=== PATIENT | female | born 1945 | race Caucasian/White ===

== ENCOUNTER 2017-03-31 22:30 | Emergency (ER) | payer MEDICARE ==
[~2017-03-31] VITALS: Ht 154.9 cm; Wt 64.1 kg
[~2017-03-31 22:30] MED LIST: CHOL1CAP6 PO; FISH100020 PO; TAB-TAB PO
[2017-03-31 22:32] VITALS: BP 155/76; PULSE 78; RESP 16; TEMP 98.2; O2SAT 94
--- NOTE | 2017-03-31 22:59 | PD ---
HPI Chief Complaint: Pain: Acute or Chronic Time Seen by Provider: 22:59 Travel History International Travel<30 days: No Contact w/Intl Traveler<30days: No Traveled to known affect area: No History of Present Illness HPI 71-year-old female came to the emergency room with history of right hip pain radiating down the back of her leg up to the mid calf. Patient says this pain started yesterday and is progressively worsening. It gets worse when she is moving or standing up or walking. Patient appeared to be in distress and laying on her left side. She's never had this kind of pain before. No history of trauma or lifting heavy weights. Patient does not have any lower back problems that she knows of. Vital signs were otherwise stable. [facility]LY [facility] Past Medical History Narrative Medical List of her past medical, surgical, social and family history is reviewed from the nursing note. Asthma: No Blood Disorders: No Anxiety: No Depression: No Heart Rhythm Problems: No Cancer: Yes (COLON, BERTIN. BREASTS WITH +MARKERS) Cardiovascular Problems: No High Cholesterol: No Chemotherapy: No Chest Pain: No Congestive Heart Failure: No COPD: No Diabetes: No Endocrine: No Gastrointestinal Disorders: Yes (S/P COLON CANCER) Genitourinary: No Hepatitis: No Hiatal Hernia: No Immune Disorder: No Medical other: Yes (ANEMIA) Musculoskeletal: Yes (ARTHRITIS) Neurologic: Yes (NEUROPATHY FEET/ FINGERTIPS) Psychiatric: No Reproductive: No Respiratory: No Radiation Therapy: No Sleep Apnea: No Thyroid Disease: No Tetanus Vaccination: > 5 Years Influenza Vaccination: No PNEUMOCCOCAL Vaccine (Year): 2 ?: Not Menopausal: Yes Past Surgical History Abdominal Surgery: Yes (COLON RESECTION/ PANCREATIC REPAIR) AICD: No Body Medical Devices: BREASTS, CHEMOPORT Cardiac Surgery: No Section: Yes (X 3) Ear Surgery: No Endocrine Surgery: No Eye Surgery: No Genitourinary Surgery: Yes Gynecologic Surgery: Yes (3 C SECTIONS/ RIGHT OOPHORECTOMY) Hysterectomy: Yes Joint Replacement: No Oral Surgery: No Pacemaker: No Thoracic Surgery: No Other Surgery: Yes (breast implants) Social History Alcohol Use: Yes Tobacco Use: No Substance Use: No Allergies-Medications (Allergen,Severity, Reaction): Coded Allergies: Influenza Virus Vaccines (Unverified Allergy, Severe, NAUSEA, 04/02/17) acetaminophen (Unverified Allergy, Severe, NAUSEA, 2/13/18) propoxyphene (Unverified Allergy, Severe, NAUSEA, 04/02/17) Comments List of allergies reviewed from the nursing note. Reported Meds & Prescriptions Reported Meds & Active Scripts Active Percocet (Oxycodone-Acetaminophen) 5-325 mg Tab 1 Tab PO Q4H PRN Prednisone 20 Mg Tab 60 Mg PO DAILY 5 Days Flexeril (Cyclobenzaprine HCl) 5 Mg Tab 5 Mg PO TID Narrative Medication List of her home medications reviewed from the nursing note. Review of Systems Except as stated in HPI: all other systems reviewed are Neg Musculoskeletal: Positive: Pain Physical Exam Narrative GENERAL: Awake, alert, moderate distress SKIN: Focused skin assessment warm/dry. HEAD: Atraumatic. Normocephalic. EYES: Pupils equal and round. No scleral icterus. No injection or drainage. ENT: No nasal bleeding or discharge. Mucous membranes pink and moist. NECK: Trachea midline. No JVD. CARDIOVASCULAR: Regular rate and rhythm. No murmur appreciated. RESPIRATORY: No accessory muscle use. Clear to auscultation. Breath sounds equal bilaterally. GASTROINTESTINAL: Abdomen soft, non-tender, nondistended. Hepatic and splenic margins not palpable. MUSCULOSKELETAL: No obvious deformities. No clubbing. No cyanosis. No edema. Negative SLR NEUROLOGICAL: Awake and alert. No obvious cranial nerve deficits. Motor grossly within normal limits. Normal speech. PSYCHIATRIC: Appropriate mood and affect; insight and judgment normal. Data Data Last Documented VS Vital Signs Date Time Temp Pulse Resp B/P (MAP) Pulse Ox O2 Delivery O2 Flow Rate FiO2 04/01/17 01:24 03/31/17 22:32 98.2 78 16 94 Room Air Orders Orders Ketorolac Inj (Toradol Inj) (03/31/17 23:15) Orphenadrine Inj (Norflex Inj) (03/31/17 23:15) Ct Lumb Spine W/O Contrast (03/31/17 ) Morphine Inj (Morphine Inj) (03/31/17 23:15) Ed Discharge Order (04/01/17 01:15) MDM Medical Decision Making Medical Screen Exam Complete: Yes Emergency Medical Condition: Yes Medical Record Reviewed: Yes Differential Diagnosis Sciatica, lumbar radiculopathy, Narrative Course Motor [address] scan of the lumbar spine showed some DJD but otherwise negative. Patient was given IM pain medications and muscle relaxants. Upon reassessment patient seems to be up and taking a few steps at this point. I'm comfortable discharging her home. Diagnosis Primary Impression: Lumbar radiculopathy, acute Referrals: Primary Care Physician Additional Instructions: Please return to the ER if condition worsens or any other new concerns. Otherwise follow-up with your primary care next couple days. Take the medications as per the prescription direction. One of the medication will make you groggy. He should not be driving while you are on the medication. If your symptoms do not improve significantly your primary care should order an MRI off your lower back as an outpatient. Med/Other Pt SpecificInfo: Prescription(s) given Scripts Cyclobenzaprine (Flexeril) 5 Mg Tab 5 MG PO TID for Muscle Spasm, #15 TAB 0 Refills Prov: Drake Ambrosio MD 04/01/17 Disposition: 01 DISCHARGE HOME Condition: Stable Drake Ambrosio MD Mar 31, 2017 22:59
[2017-03-31] MEDS ORDERED: KETOROLAC TROMETHAMINE 60 MG/2 ML (IM) VIAL IM ONE (23:15)
[2017-03-31] MEDS ORDERED: MORPHINE SULFATE 8 MG/ML INJ IM ONE (23:15)
[2017-03-31] MEDS ORDERED: ORPHENADRINE INJ 60 MG/2 ML AMP IM ONE (23:15)
--- NOTE | 2017-03-31 23:59 | RADRPT ---
EXAM DATE/TIME: 03/31/2017 23:40 [facility] COMPARISON: No previous studies available for comparison. INDICATIONS : Trauma; back pain. RADIATION DOSE: 20.91 CTDIvol (mGy) MEDICAL HISTORY : Carcinoma, breast. Carcinoma, colon. SURGICAL HISTORY : Colon resection. Mastectomy, bilateral. section.breast reconstruction, right oopherectomy ENCOUNTER: Initial ACUITY: 1 day PAIN SCALE: 6/10 LOCATION: lower back TECHNIQUE: Volumetric scanning of the lumbar spine was performed. Multiplanar reconstructions in the sagittal, coronal and oblique axial planes were performed. Using automated exposure control and adjustment of the mA and/or kV according to patient size, radiation dose was kept as low as reasonably achievable t o obtain optimal diagnostic quality images. DICOM format image data is available electronically for review and comparison. FINDINGS: Mild disc space narrowing at L3-4 with slight retrolisthesis of L3 on L4. Multilevel osteophyte forma tion greatest at L3 and L4. There are no compression deformities. Bone density is normal. Multilevel facet hypertrophic changes are identified. There is no canal stenosis. Minimal diffuse disc bulge at L3-4 and L4-5. At L5-S1, a focal right central disc protrusion is noted with superior migration. Ther e is mild mass effect on the right L5 nerve roots. On axial image 67 of series 4 the protrusion measu res 9.8 mm in transverse dimension by 7 mm in AP dimension. CONCLUSION: Degenerative changes are noted without evidence for acute fracture. Alan Garcia MD on March 31, 2017 at 23:56 Board Certified Radiologist. This report was verified electronically.
[2017-04-01] MEDS ORDERED: CYCL5TAB PO (01:17)
[2017-04-01] MEDS ORDERED: IBUP1TAB5 PO (01:17)
[2017-04-02] MEDS ORDERED: PRED20 PO (13:58)
[2017-04-02] MEDS ORDERED: PERC5TAB12 PO (13:58)
== END 2017-04-01 01:56 | disposition home or self-care (01) ==
LOC: NEPC 22:30
DX: M54.16 Radiculopathy, lumbar region (principal); D64.9 Anemia, unspecified; M19.90 Unspecified osteoarthritis, unspecified site; G62.9 Polyneuropathy, unspecified; Z88.6 Allergy status to analgesic agent; Z88.8 Allergy status to other drugs, medicaments and biological substances
CPT/HCPCS: 72131; 96372; 99283; J1885; J2270; J2360

== ENCOUNTER 2017-04-02 10:26 | Emergency (ER) | payer MEDICARE ==
[~2017-04-02] VITALS: Ht 154.9 cm; Wt 63.5 kg
[2017-04-02 10:26] VITALS: BP 164/67; PULSE 66; RESP 18; TEMP 98.1; O2SAT 97
[~2017-04-02 10:26] MED LIST changes: +CYCL5TAB PO; +IBUP1TAB5 PO
[2017-04-02] MEDS ORDERED: MORPHINE SULFATE 4 MG/ML INJ IV PUSH ONE (11:30)
[2017-04-02] MEDS ORDERED: DEXAMETHASONE SOD PHOS 20 MG/5 ML VIAL IV PUSH ONE (11:30)
[2017-04-02] MEDS ORDERED: ONDANSETRON HCL 4 MG/2 ML VIAL IV PUSH ONE (11:30)
--- NOTE | 2017-04-02 12:08 | PD ---
HPI . Back pain Chief Complaint: Back/ Neck Pain or Injury Time Seen by Provider: 11:14 Travel History International Travel<30 days: No Contact w/Intl Traveler<30days: No History of Present Illness HPI Patient presents to us with a chief complaint of right low back pain radiating down to her right foot. Onset was 4 days ago. Symptoms are getting progressively worse. Pain is exacerbated by movement. Pain is rated 10/10. Pain was seen here is ago for same and had a CT of her L-spine which showed degenerative joint disease. She was discharged to home with prescriptions for ibuprofen and Flexeril. She states that she has been taking these with no relief of her pain. Instructed to follow-up with her primary care physician but cannot get in to see him until tomorrow. In the meantime, she has severe pain which is preventing her from sleeping. Patient denies fevers. She denies saddle anesthesia. She denies paresthesias or weakness of her right leg. PFSH Past Medical History Anemia: Yes Arthritis: Yes Asthma: No Blood Disorders: No Anxiety: No Depression: No Heart Rhythm Problems: No Cancer: Yes (COLON, BERTIN. BREASTS WITH +MARKERS) Cardiovascular Problems: No High Cholesterol: No Chemotherapy: Yes (COMPLETED ) Chest Pain: No Congestive Heart Failure: No COPD: No Diabetes: No Diminished Hearing: No Endocrine: No Gastrointestinal Disorders: Yes (S/P COLON CANCER) Genitourinary: No Hepatitis: No Hiatal Hernia: No Immune Disorder: No Musculoskeletal: Yes (ARTHRITIS) Neurologic: Yes (NEUROPATHY FEET/ FINGERTIPS) Psychiatric: No Reproductive: No Respiratory: No Immunizations Current: Yes Radiation Therapy: No Sleep Apnea: No Thyroid Disease: No PNEUMOCCOCAL Vaccine (Year): 2 ?: Not Menopausal: Yes Past Surgical History Abdominal Surgery: Yes (COLON RESECTION/ PANCREATIC REPAIR) AICD: No Body Medical Devices: BREASTS, CHEMOPORT Cardiac Surgery: No Section: Yes (X 3) Ear Surgery: No Endocrine Surgery: No Eye Surgery: No Genitourinary Surgery: Yes Gynecologic Surgery: Yes (3 C SECTIONS/ RIGHT OOPHORECTOMY) Hysterectomy: Yes Joint Replacement: No Neurologic Surgery: No Oral Surgery: No Pacemaker: No Thoracic Surgery: No Other Surgery: Yes (breast implants, INFUSIVE PORT R CHEST ) Social History Alcohol Use: Yes Tobacco Use: No Substance Use: No Allergies-Medications (Allergen,Severity, Reaction): Coded Allergies: Influenza Virus Vaccines (Unverified Allergy, Severe, NAUSEA, 04/02/17) acetaminophen (Unverified Allergy, Severe, NAUSEA, 04/02/17) propoxyphene (Unverified Allergy, Severe, NAUSEA, 04/02/17) Reported Meds & Prescriptions Reported Meds & Active Scripts Active Flexeril (Cyclobenzaprine HCl) 5 Mg Tab 5 Mg PO TID Ibuprofen 400 Mg Tab 400 Mg PO Q6H PRN Review of Systems Except as stated in HPI: all other systems reviewed are Neg Physical Exam Narrative GENERAL: Patient is lying supine on the stretcher with her hips and knees flexed. SKIN: Warm and dry. Normal color and turgor. HEAD: Normocephalic/atraumatic. EYES: Pupils are equal. Extraocular movements are intact. NECK: Normal range of motion. Distally RESPIRATORY: Nonlabored respirations. ABDOMEN: No pulsatile abdominal masses. Really MUSCULOSKELETAL: Straight leg raise on the right exacerbated her pain. Logrolling have her hip also exacerbated her pain. She does not have tenderness to palpation in her low back or buttock area. NEUROLOGICAL: Nonfocal. PSYCHIATRIC: Appropriate mood and affect. Data Data Last Documented VS Vital Signs Date Time Temp Pulse Resp B/P (MAP) Pulse Ox O2 Delivery O2 Flow Rate FiO2 04/02/17 10:26 98.1 66 18 164/67 (99) 97 Room Air Orders Orders ^ Saline Lock (04/02/17 11:21) Ondansetron Inj (Zofran Inj) (04/02/17 11:30) Morphine Inj (Morphine Inj) (04/02/17 11:30) Dexamethasone Inj (Decadron Inj) (04/02/17 11:30) Mri L Spine W&W/O Contrast (04/02/17 11:21) MDM Medical Decision Making Medical Screen Exam Complete: Yes Emergency Medical Condition: Yes Medical Record Reviewed: Yes (please see HPI for pertinent review of records) Differential Diagnosis Differential diagnosis includes but is not limited to muscular low back pain, DDD, spinal stenosis, epidural abscess, sciatica, kidney infection or stone. Narrative Course Patient presents with sciatica on the right. I have ordered an MRI. I will treat her with morphine and Decadron. MRI: 1. Extruded disc fragment extending from L5-S1 cephalad for 12 mm within the lateral recess impinging the right L5 nerve root just before it enters the right neural foramen. 2. Partial visualization of a tiny syrinx. The patient will be referred to neurosurgery. I will treat her with steroids in the interim. Diagnosis Primary Impression: Herniated nucleus pulposus Referrals: Oneil Levy MD 3 days Patient Instructions: General Instructions, Lumbar Radiculopathy (ED) Med/Other Pt SpecificInfo: Prescription(s) given Scripts Oxycodone-Acetaminophen (Percocet) 5-325 mg Tab 1 TAB PO Q4H Y for PAIN, #12 TAB 0 Refills Prov: Marlee Kinney MD 04/02/17 Prednisone (Prednisone) 20 Mg Tab 60 MG PO DAILY for 5 Days, #15 TAB 0 Refills Prov: Marlee Kinney MD 04/02/17 Disposition: 01 DISCHARGE HOME Condition: Stable Marlee Kinney MD Apr 02, 2017 12:08
--- NOTE | 2017-04-02 13:53 | RADRPT ---
EXAM DATE/TIME: 04/02/2017 12:33 [facility] COMPARISON: No previous studies available for comparison. INDICATIONS : Lower back pain radiating down right leg with no known injury. CONTRAST: 13 cc Omniscan (gadodiamide) IV MEDICAL HISTORY : Carcinoma, breast. Carcinoma, colon. SURGICAL HISTORY : Colon resection. lumpectomy, port placed ENCOUNTER: Subsequent ACUITY: 4-6 days PAIN SCORE: 8/10 LOCATION: Right lower back and leg TECHNIQUE: Multiplanar multisequence MRI of the lumbar spine was performed with and without contrast. FINDINGS: The most caudal appearing lumbar vertebra is numbered as L5. VERTEBRAE: Homogeneous signal. Normal alignment. CONUS: Normal level and configuration. A tiny syrinx is seen involving the lower aspect of the cord. This me asures less than 1 mm in diameter. POST CONTRAST: No abnormal areas of contrast enhancement are seen. T12-L1: The thecal sac has a normal diameter. No evidence of disc bulge or protrusion. The neural foramina are patent bilaterally. L1-L2: The thecal sac has a normal diameter. No evidence of disc bulge or protrusion. The neural foramina are patent bilaterally. L2-L3: The thecal sac has a normal diameter. No evidence of disc bulge or protrusion. The neural foramina are patent bilaterally. L3-L4: There is disc desiccation and mild disc space narrowing. A mild broad-based disc bulge. Lateral reces ses and central canal are patent. Facet joints are unremarkable. Neural foramina are patent. L4-L5: There is disc desiccation with minimal loss of height. A minimal broad-based bulge. Lateral recesses and central canal are patent. Neural foramina are patent. Facet joints show mild bony hypertrophy. L5-S1: There is an extruded disc fragment coursing cephalad within the ventral portion of the central canal within the right lateral recess. This extruded fragment extends 12 mm cephalad from the L5-S1 disc sp steffany. It does narrow the right lateral recess and abuts the right L5 nerve root just before it enters the right neural foramen. The central canal and left lateral recess are patent. There is narrowing of the left neural foramen due to bony uncovertebral hypertrophy. No overt impingement. CONCLUSION: 1. Extruded disc fragment extending from L5-S1 cephalad for 12 mm within the lateral recess impinging the right L5 nerve root just before it enters the right neural foramen. 2. Partial visualization of a tiny syrinx. Reggie Denney Jr., MD on April 02, 2017 at 13:43 Board Certified Radiologist. This report was verified electronically.
[2017-04-02] MEDS ORDERED: PRED20 PO (13:58)
[2017-04-02] MEDS ORDERED: PERC5TAB12 PO (13:58)
[2017-04-02] MEDS ORDERED: GADODIAMIDE PF 287 MG/ML 5 ML VIAL (for RAD MRI) IV PUSH ONE (14:26)
== END 2017-04-02 14:27 | disposition home or self-care (01) ==
LOC: NEPD 10:26
DX: M51.26 Other intervertebral disc displacement, lumbar region (principal); Z85.038 Personal history of other malignant neoplasm of large intestine; Z85.3 Personal history of malignant neoplasm of breast; Z88.6 Allergy status to analgesic agent; Z88.7 Allergy status to serum and vaccine; Z88.8 Allergy status to other drugs, medicaments and biological substances
CPT/HCPCS: 72158; 96374; 96375; 99285; A9579; J1100; J2270; J2405